=== PATIENT | male | born 1950 | race Caucasian/White ===

== ENCOUNTER → 2023-09-02 06:37 | Day surgery (SDC) | payer MEDICARE, BC, SELFPAY | LOC: GI 06:37 | PROVIDERS: ATTENDING PHYSICIAN Internal Medicine Gastroenterology | DX: D12.2 Benign neoplasm of ascending colon (principal); D12.5 Benign neoplasm of sigmoid colon; K57.30 Diverticulosis of large intestine without perforation or abscess without bleeding; K64.8 Other hemorrhoids; Z80.0 Family history of malignant neoplasm of digestive organs | CPT/HCPCS: 45385; 45380; 88305 ==

== ENCOUNTER → 2025-02-07 16:12 | Outpatient (REF) | payer MEDICARE, BC, SELFPAY | LOC: RAD 16:12 | PROVIDERS: ATTENDING PHYSICIAN Nurse Practitioner | DX: R05.3 Chronic cough (principal) | CPT/HCPCS: 71046 ==